=== PATIENT | female | born 1945 | race Caucasian/White ===

== ENCOUNTER 2017-08-15 13:18 | Observation (INO) | payer MEDICARE ==
[2017-08-15] MEDS: ASPIRIN 81 MG TAB PO (15:14)
[2017-08-15 15:17] LABS: ADD MAN DIFF? NO
[2017-08-15 15:19] LABS: BASOPHIL # 0.1 10^3/ul (0.0-0.1); BASOPHILS % 0.9 % (0.0-2.0); EOSINOPHILS # 0.1 10^3/ul (0.0-0.5); EOSINOPHILS % 1.2 % (0.0-7.0); HEMATOCRIT 43.6 % (37.0-47.0); HEMOGLOBIN 13.9 g/dl (12.0-16.0); LYMPHOCYTES # 2.2 10^3/ul (0.8-2.9); LYMPHOCYTES % 32.1 % (15.0-51.0); MEAN CORPUSCULAR HEMOGLOBIN 28.5 pg (29.0-33.0); MEAN CORPUSCULAR HGB CONC 31.9 g/dl (32.0-37.0); MEAN CORPUSCULAR VOLUME 89.5 fl (82.0-101.0); MEAN PLATELET VOLUME 10.4 fl (7.4-10.4); MONOCYTE # 0.5 10^3/ul (0.3-0.9); MONOCYTES % 7.1 % (0.0-11.0); NEUTROPHILS % 58.3 % (39.0-77.0); PLATELET COUNT 271 10^3/UL (140-415); RED BLOOD COUNT 4.87 10^6/ul (4.20-5.40); RED CELL DISTRIBUTION WIDTH 14.9 % (11.5-14.5)
[2017-08-15 15:19] LABS: WHITE BLOOD COUNT 6.9 10^3/ul (4.8-10.8)
[2017-08-15 15:41] LABS: ALANINE AMINOTRANSFERASE 16 IU/L (13-69); ALBUMIN 4.6 g/dl (3.3-4.9); ALBUMIN/GLOBULIN RATIO 1.21; ALKALINE PHOSPHATASE 91 IU/L (42-121); ANION GAP 17 (8-16); ASPARTATE AMINO TRANSFERASE 20 IU/L (15-46); BILIRUBIN,INDIRECT 0.2 mg/dl (0-1.1); BILIRUBIN,TOTAL 0.2 mg/dl (0.2-1.3); BLOOD UREA NITROGEN 15 mg/dl (7-20); CALCIUM 9.2 mg/dl (8.4-10.2); CARBON DIOXIDE 27 mmol/L (21-31); CHLORIDE 107 mmol/L (97-110); CREATININE 1.22 mg/dl (0.44-1.00); GLUCOSE 98 mg/dl (70-220); LIPASE 80 U/L (23-300); POTASSIUM 3.8 mmol/L (3.5-5.1); SODIUM 147 mmol/L (135-144); TOTAL PROTEIN 8.4 g/dl (6.1-8.1)
[2017-08-15 15:44] LABS: PROTIME 12.2 Sec (11.9-14.9)
[2017-08-15 15:52] LABS: B-TYPE NATRIURETIC PEPTIDE 2320 PG/ML (0-125)
[2017-08-15 15:53] LABS: TROPONIN-I < 0.012 ng/ml (0.00-0.12)
[2017-08-15] MEDS: SOD CHLORIDE 0.9% 1,000 ML IV (16:04)
[2017-08-15 19:55] LABS: TROPONIN-I 0.012 ng/ml (0.00-0.12)
[2017-08-15] MEDS: FUROSEMIDE 20 MG INJ IV (22:23)
[2017-08-15] MEDS: POTASSIUM CHLORIDE (SR) 10 MEQ TAB PO (22:24)
[2017-08-15] MEDS: CYCLOBENZAPRINE 10 MG TAB PO (23:00)
[2017-08-16] MEDS: ATORVASTATIN 40 MG TAB PO (00:08)
[2017-08-16] MEDS: RANITIDINE 150 MG TAB PO (00:08)
[2017-08-16] MEDS: GABAPENTIN 300 MG CAP PO ×3 (00:08→12:59)
[2017-08-16 01:05] LABS: OPIATES Positive (NEGATIVE)
[2017-08-16 01:14] LABS: AMPHETAMINE/METHAMPHETAMINE Negative (NEGATIVE); BARBITURATES Negative (NEGATIVE); BENZODIAZEPINES Negative (NEGATIVE); CANNABINOIDS Negative (NEGATIVE); COCAINE Negative (NEGATIVE)
[2017-08-16 07:54] LABS: ADD MAN DIFF? NO
[2017-08-16 07:57] LABS: BASOPHIL # 0.1 10^3/ul (0.0-0.1); BASOPHILS % 0.8 % (0.0-2.0); EOSINOPHILS # 0.1 10^3/ul (0.0-0.5); EOSINOPHILS % 1.5 % (0.0-7.0); HEMATOCRIT 39.1 % (37.0-47.0); HEMOGLOBIN 12.2 g/dl (12.0-16.0); LYMPHOCYTES # 1.8 10^3/ul (0.8-2.9); LYMPHOCYTES % 25.9 % (15.0-51.0); MEAN CORPUSCULAR HEMOGLOBIN 27.9 pg (29.0-33.0); MEAN CORPUSCULAR HGB CONC 31.2 g/dl (32.0-37.0); MEAN CORPUSCULAR VOLUME 89.3 fl (82.0-101.0); MEAN PLATELET VOLUME 10.5 fl (7.4-10.4); MONOCYTE # 0.7 10^3/ul (0.3-0.9); MONOCYTES % 9.7 % (0.0-11.0); NEUTROPHIL # 4.4 10^3/ul (1.6-7.5); NEUTROPHILS % 61.8 % (39.0-77.0); PLATELET COUNT 239 10^3/UL (140-415); RED BLOOD COUNT 4.38 10^6/ul (4.20-5.40)
[2017-08-16 07:57] LABS: WHITE BLOOD COUNT 7.1 10^3/ul (4.8-10.8)
[2017-08-16] MEDS: BUMETANIDE 1 MG TAB PO (08:12)
[2017-08-16] MEDS: AMIODARONE 200 MG TAB PO (08:14)
[2017-08-16] MEDS: VALSARTAN 80 MG TAB PO (08:14)
[2017-08-16] MEDS: DULOXETINE 20 MG CAP DR PO (08:14)
[2017-08-16] MEDS: ASPIRIN (EC) 325 MG TAB PO (08:15)
[2017-08-16] MEDS: CYCLOBENZAPRINE 10 MG TAB PO ×2 (08:15→12:59)
[2017-08-16] MEDS: POTASSIUM CHLORIDE (SR) 10 MEQ TAB PO (08:15)
[2017-08-16] MEDS: CLOPIDOGREL 75 MG TAB PO (08:15)
[2017-08-16 08:36] LABS: ALANINE AMINOTRANSFERASE 19 IU/L (13-69); ALBUMIN 3.4 g/dl (3.3-4.9); ALBUMIN/GLOBULIN RATIO 1.21; ALKALINE PHOSPHATASE 81 IU/L (42-121); ANION GAP 11 (8-16); ASPARTATE AMINO TRANSFERASE 14 IU/L (15-46); BILIRUBIN,INDIRECT 0.1 mg/dl (0-1.1); BILIRUBIN,TOTAL 0.1 mg/dl (0.2-1.3); BLOOD UREA NITROGEN 17 mg/dl (7-20); CALCIUM 8.7 mg/dl (8.4-10.2); CARBON DIOXIDE 28 mmol/L (21-31); CHLORIDE 109 mmol/L (97-110); CREATININE 0.98 mg/dl (0.44-1.00); GLUCOSE 105 mg/dl (70-220); POTASSIUM 4.2 mmol/L (3.5-5.1); SODIUM 144 mmol/L (135-144); TOTAL PROTEIN 6.2 g/dl (6.1-8.1)
[2017-08-16 08:42] LABS: B-TYPE NATRIURETIC PEPTIDE 2790 PG/ML (0-125)
[2017-08-16 08:44] LABS: TROPONIN-I 0.015 ng/ml (0.00-0.12)
[2017-08-16] MEDS: LORAZEPAM 1 MG TAB PO ×2 (12:17→18:01)
[2017-08-16] MEDS: BUMETANIDE 1 MG INJ IV (15:04)
[2017-08-16 15:09] LABS: D-DIMER 1036.61 ng/ml (<460)
[2017-08-16] MEDS: HYDROCODONE/APAP (5/325) TAB PO (17:35)
[2017-08-17] MEDS ORDERED: BUMETANIDE 1 MG TAB PO (06:00)
[2017-08-17] MEDS ORDERED: VALSARTAN 80 MG TAB PO (09:00)
[2017-08-17] MEDS ORDERED: ASPIRIN (EC) 81 MG TAB PO (09:00)
== END 2017-08-16 19:50 | disposition home or self-care (01) ==
LOC: E/R 13:18 → TEL 18:34
DX: R07.89 Other chest pain (principal); I50.9 Heart failure, unspecified; R60.0 Localized edema; F41.9 Anxiety disorder, unspecified; F32.9 Major depressive disorder, single episode, unspecified; I10 Essential (primary) hypertension; E78.5 Hyperlipidemia, unspecified; I25.2 Old myocardial infarction; Z86.73 Personal history of transient ischemic attack (TIA), and cerebral infarction without residual deficits; Z95.0 Presence of cardiac pacemaker; Z79.82 Long term (current) use of aspirin
CPT/HCPCS: 36415; 71045; 78582; 80053; 80307; 83690; 83880; 84443; 84484; 85025; 85378; 85610; 85730; 93005; 93306; 93970; 96361; 96374; 99285-25; G0378

== ENCOUNTER 2017-08-20 14:58 | Inpatient (IN) | payer MEDICARE ==
[2017-08-20 15:46] LABS: AADO2 Arterial 98.2 mmHg (7.0-24.0); Allen Test ACCEPTAB; Arterial Base Excess -0.5 mmol/L (-3.0-3); Arterial Blood Gas Oxygen Sat 86.3 mmHG (95.0-100.0); Arterial COHb 0.4 % (0.0-3.0); Arterial Fraction of Oxyhgb 85.8 % (93.0-99.0); Arterial HCO3 23.4 mmol/L (22.0-26.0); Arterial MetHb 0.2 % (0.0-1.5); Arterial Total Hemglobin 11.7 g/dl (12.0-18.0); Arterial pCO2 36.1 mmhg (35-45); MODE NASAL CANNULA; Site Right Radial
[2017-08-20 15:51] LABS: ADD MAN DIFF? NO
[2017-08-20 15:54] LABS: WHITE BLOOD COUNT 9.8 10^3/ul (4.8-10.8)
[2017-08-20 15:54] LABS: BASOPHILS % 0.4 % (0.0-2.0); EOSINOPHILS # 0.1 10^3/ul (0.0-0.5); EOSINOPHILS % 1.4 % (0.0-7.0); HEMATOCRIT 35.2 % (37.0-47.0); HEMOGLOBIN 11.1 g/dl (12.0-16.0); LYMPHOCYTES # 1.7 10^3/ul (0.8-2.9); LYMPHOCYTES % 17.4 % (15.0-51.0); MEAN CORPUSCULAR HEMOGLOBIN 28.5 pg (29.0-33.0); MEAN CORPUSCULAR HGB CONC 31.5 g/dl (32.0-37.0); MEAN CORPUSCULAR VOLUME 90.3 fl (82.0-101.0); MEAN PLATELET VOLUME 10.2 fl (7.4-10.4); MONOCYTE # 0.9 10^3/ul (0.3-0.9); MONOCYTES % 9.3 % (0.0-11.0); NEUTROPHIL # 6.9 10^3/ul (1.6-7.5); NEUTROPHILS % 71.2 % (39.0-77.0); PLATELET COUNT 240 10^3/UL (140-415); RED CELL DISTRIBUTION WIDTH 15.5 % (11.5-14.5)
[2017-08-20 16:15] LABS: INR 1.11; PARTIAL THROMBOPLASTIN TIME 28.5 Sec (25.0-35.0); PROTIME 14.5 Sec (11.9-14.9); PT RATIO 1.1
[2017-08-20 16:22] LABS: ALANINE AMINOTRANSFERASE 33 IU/L (13-69); ALBUMIN 3.6 g/dl (3.3-4.9); ALBUMIN/GLOBULIN RATIO 1.09; ALKALINE PHOSPHATASE 110 IU/L (42-121); ANION GAP 13 (8-16); ASPARTATE AMINO TRANSFERASE 21 IU/L (15-46); BILIRUBIN,INDIRECT 0.4 mg/dl (0-1.1); BILIRUBIN,TOTAL 0.4 mg/dl (0.2-1.3); BLOOD UREA NITROGEN 15 mg/dl (7-20); CALCIUM 8.5 mg/dl (8.4-10.2); CARBON DIOXIDE 25 mmol/L (21-31); CHLORIDE 104 mmol/L (97-110); CREATININE 1.23 mg/dl (0.44-1.00); GLUCOSE 95 mg/dl (70-220); POTASSIUM 4.4 mmol/L (3.5-5.1); SODIUM 138 mmol/L (135-144); TOTAL PROTEIN 6.9 g/dl (6.1-8.1)
[2017-08-20 16:43] LABS: URINE BLOOD (Dip) POC Trace-lysed (NEGATIVE); URINE GLUCOSE (Dip) POC Negative (NEGATIVE); URINE KETONES (Dip) POC Negative (NEGATIVE); URINE LEUKOCYTE EST (Dip) POC Negative (NEGATIVE); URINE NITRITE (Dip) POC Negative (NEGATIVE); URINE TOTAL PROTEIN POC Negative (NEGATIVE)
[2017-08-20 16:43] LABS: URINE PH (Dip) POC 5.5 (5.0-8.5)
[2017-08-20 16:46] LABS: TROPONIN-I < 0.012 ng/ml (0.00-0.12)
[2017-08-20 16:51] LABS: ETHANOL < 10.0 mg/dl
[2017-08-20 17:01] LABS: ADD UMIC NO; UR ASCORBIC ACID NEGATIVE (NEGATIVE); UR BILIRUBIN (Dip) NEGATIVE (NEGATIVE); UR BLOOD (Dip) NEGATIVE (NEGATIVE); UR CLARITY CLEAR (CLEAR); UR COLOR STRAW (YELLOW); UR GLUCOSE (Dip) NEGATIVE (NEGATIVE); UR KETONES (Dip) NEGATIVE (NEGATIVE); UR LEUKOCYTE ESTERASE (Dip) NEGATIVE Leu/ul (NEGATIVE); UR NITRITE (Dip) NEGATIVE (NEGATIVE); UR SPECIFIC GRAVITY (Dip) 1.005 (1.003-1.030); UR TOTAL PROTEIN (Dip) NEGATIVE (NEGATIVE); UR UROBILINOGEN (Dip) NEGATIVE (NEGATIVE)
[2017-08-20] MEDS: ACETAMINOPHEN 650 MG SUPP PR (17:06)
[2017-08-20 17:21] LABS: LACTIC ACID 1.5 mmol/L (0.5-2.0)
[2017-08-20] MEDS: SOD CHLORIDE 0.9% 2,020 ML IV (17:39)
[2017-08-20] MEDS: LEVOFLOXACIN 750MG/D5W (PMX) 150 ML IVPB (17:45)
[2017-08-20] MEDS: AZTREONAM 2 GM in SOD CHLORIDE 0.9% 100 ML IVPB (19:07)
[2017-08-20 19:22] LABS: LACTIC ACID 0.6 mmol/L (0.5-2.0)
[2017-08-20] MEDS: VANCOMYCIN 1 GM (PMX) 250 ML IVPB (20:08)
[2017-08-20 22:27] LABS: LACTIC ACID 0.6 mmol/L (0.5-2.0)
[2017-08-21] MEDS ORDERED: VANCOMYCIN IV PER PHARMACY XX (03:30)
[2017-08-21] MEDS ORDERED: LORAZEPAM 1 MG TAB PO (09:00)
[2017-08-21] MEDS: ASPIRIN (EC) 325 MG TAB PO (09:04)
[2017-08-21] MEDS: VALSARTAN 80 MG TAB PO (09:04)
[2017-08-21] MEDS: CLOPIDOGREL 75 MG TAB PO (09:04)
[2017-08-21] MEDS: RANITIDINE 150 MG TAB PO ×2 (09:05→21:35)
[2017-08-21] MEDS: POTASSIUM CHLORIDE (SR) 10 MEQ TAB PO (09:05)
[2017-08-21] MEDS: GABAPENTIN 300 MG CAP PO ×2 (09:05→14:12)
[2017-08-21] MEDS: LORAZEPAM 1 MG TAB PO ×2 (09:05→21:37)
[2017-08-21] MEDS: DULOXETINE 30 MG CAP DR PO (09:05)
[2017-08-21 09:26] LABS: ADD MAN DIFF? NO
[2017-08-21 09:31] LABS: BASOPHILS % 0.4 % (0.0-2.0); EOSINOPHILS # 0.1 10^3/ul (0.0-0.5); EOSINOPHILS % 1.2 % (0.0-7.0); HEMOGLOBIN 10.1 g/dl (12.0-16.0); LYMPHOCYTES # 0.9 10^3/ul (0.8-2.9); LYMPHOCYTES % 11.6 % (15.0-51.0); MEAN CORPUSCULAR HEMOGLOBIN 28.1 pg (29.0-33.0); MEAN CORPUSCULAR HGB CONC 31.6 g/dl (32.0-37.0); MEAN CORPUSCULAR VOLUME 89.1 fl (82.0-101.0); MEAN PLATELET VOLUME 10.5 fl (7.4-10.4); MONOCYTE # 0.7 10^3/ul (0.3-0.9); MONOCYTES % 9.3 % (0.0-11.0); NEUTROPHIL # 5.8 10^3/ul (1.6-7.5); NEUTROPHILS % 77.1 % (39.0-77.0); PLATELET COUNT 234 10^3/UL (140-415); RED BLOOD COUNT 3.59 10^6/ul (4.20-5.40); RED CELL DISTRIBUTION WIDTH 15.4 % (11.5-14.5)
[2017-08-21 09:31] LABS: WHITE BLOOD COUNT 7.5 10^3/ul (4.8-10.8)
[2017-08-21 10:00] LABS: CK-MB 1.48 ng/ml (0.0-2.4)
[2017-08-21 10:01] LABS: TROPONIN-I < 0.012 ng/ml (0.00-0.12)
[2017-08-21 10:03] LABS: ANION GAP 14 (8-16); BLOOD UREA NITROGEN 13 mg/dl (7-20); CALCIUM 8.6 mg/dl (8.4-10.2); CARBON DIOXIDE 23 mmol/L (21-31); CHLORIDE 109 mmol/L (97-110); GLUCOSE 98 mg/dl (70-220); POTASSIUM 4.1 mmol/L (3.5-5.1); SODIUM 142 mmol/L (135-144)
[2017-08-21 10:05] LABS: CK INDEX 1.3; CREATINE KINASE 116 IU/L (23-200)
[2017-08-21] MEDS: AZTREONAM 1 GM/NS (PMX) 50 ML IVPB ×3 (10:11→21:35)
[2017-08-21] MEDS: FUROSEMIDE 20 MG INJ IV (14:13)
[2017-08-21] MEDS ORDERED: VANCOMYCIN 1 GM (PMX) 250 ML IVPB (16:00)
[2017-08-21] MEDS: VANCOMYCIN 1.25 GM in SOD CHLORIDE 0.9% 250 ML IVPB (16:37)
[2017-08-21] MEDS ORDERED: AZTREONAM 2 GM in SOD CHLORIDE 0.9% 100 ML IVPB (20:00)
[2017-08-21] MEDS: ATORVASTATIN 40 MG TAB PO (21:35)
[2017-08-22] MEDS: AZTREONAM 1 GM/NS (PMX) 50 ML IVPB ×3 (05:43→22:00)
[2017-08-22 07:30] LABS: ADD MAN DIFF? NO
[2017-08-22 07:32] LABS: BASOPHILS % 0.4 % (0.0-2.0); EOSINOPHILS # 0.1 10^3/ul (0.0-0.5); EOSINOPHILS % 1.3 % (0.0-7.0); HEMOGLOBIN 10.6 g/dl (12.0-16.0); LYMPHOCYTES # 1.4 10^3/ul (0.8-2.9); LYMPHOCYTES % 20.3 % (15.0-51.0); MEAN CORPUSCULAR HEMOGLOBIN 28.1 pg (29.0-33.0); MEAN CORPUSCULAR HGB CONC 32.1 g/dl (32.0-37.0); MEAN CORPUSCULAR VOLUME 87.5 fl (82.0-101.0); MEAN PLATELET VOLUME 9.9 fl (7.4-10.4); MONOCYTE # 0.8 10^3/ul (0.3-0.9); MONOCYTES % 11.5 % (0.0-11.0); NEUTROPHIL # 4.4 10^3/ul (1.6-7.5); NEUTROPHILS % 66.1 % (39.0-77.0); PLATELET COUNT 269 10^3/UL (140-415); RED BLOOD COUNT 3.77 10^6/ul (4.20-5.40); RED CELL DISTRIBUTION WIDTH 15.4 % (11.5-14.5)
[2017-08-22 07:32] LABS: WHITE BLOOD COUNT 6.7 10^3/ul (4.8-10.8)
[2017-08-22 07:59] LABS: ANION GAP 10 (8-16); BLOOD UREA NITROGEN 12 mg/dl (7-20); CALCIUM 8.9 mg/dl (8.4-10.2); CARBON DIOXIDE 28 mmol/L (21-31); CHLORIDE 109 mmol/L (97-110); CREATININE 0.84 mg/dl (0.44-1.00); GLUCOSE 101 mg/dl (70-220); IRON 34 ug/dl (35-150); POTASSIUM 3.8 mmol/L (3.5-5.1); SODIUM 143 mmol/L (135-144)
[2017-08-22 08:07] LABS: B-TYPE NATRIURETIC PEPTIDE 7290 PG/ML (0-125)
[2017-08-22 08:09] LABS: % IRON SATURATION 12 % SAT (22-52); TOTAL IRON BINDING CAPACITY 293 ug/dl (241-421)
[2017-08-22 08:48] LABS: D-DIMER 3728.73 ng/ml (<460)
[2017-08-22 09:11] LABS: FOLATE 13.3 ng/ml (2.8-20.0)
[2017-08-22] MEDS: ASPIRIN (EC) 81 MG TAB PO (10:57)
[2017-08-22] MEDS: RANITIDINE 150 MG TAB PO ×2 (10:57→20:10)
[2017-08-22] MEDS: CLOPIDOGREL 75 MG TAB PO (10:57)
[2017-08-22] MEDS: THYROID 60 MG TAB PO (10:58)
[2017-08-22] MEDS: VALSARTAN 80 MG TAB PO (10:58)
[2017-08-22] MEDS: FUROSEMIDE 20 MG TAB PO (10:58)
[2017-08-22] MEDS: POTASSIUM CHLORIDE (SR) 10 MEQ TAB PO (10:58)
[2017-08-22] MEDS: IOHEXOL 300MG/ML 150 ML BTL (12:02)
[2017-08-22] MEDS: SOD CHLORIDE 0.9% 100 ML (12:02)
[2017-08-22] MEDS: FUROSEMIDE 40 MG INJ IV (14:13)
[2017-08-22] MEDS: HYDROmorphONE 2 MG TAB PO (14:55)
[2017-08-22 15:16] LABS: AMPHETAMINE/METHAMPHETAMINE Negative (NEGATIVE); BARBITURATES Negative (NEGATIVE); BENZODIAZEPINES Negative (NEGATIVE); CANNABINOIDS Negative (NEGATIVE); COCAINE Negative (NEGATIVE)
[2017-08-22 15:43] LABS: OPIATES Positive (NEGATIVE)
[2017-08-22] MEDS: VANCOMYCIN 1.25 GM in SOD CHLORIDE 0.9% 250 ML IVPB (16:11)
[2017-08-22] MEDS: LEVOFLOXACIN 750MG/D5W (PMX) 150 ML IVPB (19:22)
[2017-08-22] MEDS: LORAZEPAM 1 MG TAB PO (19:25)
[2017-08-22] MEDS: ATORVASTATIN 40 MG TAB PO (20:10)
[2017-08-22] MEDS: FERROUS SULFATE (SR) 142 MG TAB PO (21:03)
[2017-08-23] MEDS: AZTREONAM 1 GM/NS (PMX) 50 ML IVPB ×3 (06:04→21:22)
[2017-08-23] MEDS: FUROSEMIDE 20 MG INJ IV ×2 (06:05→17:55)
[2017-08-23 08:00] LABS: ADD MAN DIFF? NO
[2017-08-23 08:09] LABS: BASOPHILS % 0.5 % (0.0-2.0); EOSINOPHILS # 0.1 10^3/ul (0.0-0.5); EOSINOPHILS % 1.2 % (0.0-7.0); HEMATOCRIT 37.9 % (37.0-47.0); HEMOGLOBIN 12.2 g/dl (12.0-16.0); LYMPHOCYTES # 1.5 10^3/ul (0.8-2.9); LYMPHOCYTES % 20.6 % (15.0-51.0); MEAN CORPUSCULAR HGB CONC 32.2 g/dl (32.0-37.0); MEAN CORPUSCULAR VOLUME 87.1 fl (82.0-101.0); MEAN PLATELET VOLUME 9.4 fl (7.4-10.4); MONOCYTE # 0.8 10^3/ul (0.3-0.9); MONOCYTES % 11.4 % (0.0-11.0); NEUTROPHIL # 4.8 10^3/ul (1.6-7.5); PLATELET COUNT 341 10^3/UL (140-415); RED BLOOD COUNT 4.35 10^6/ul (4.20-5.40); RED CELL DISTRIBUTION WIDTH 15.1 % (11.5-14.5)
[2017-08-23 08:09] LABS: WHITE BLOOD COUNT 7.3 10^3/ul (4.8-10.8)
[2017-08-23 08:31] LABS: B-TYPE NATRIURETIC PEPTIDE 6980 PG/ML (0-125)
[2017-08-23 08:33] LABS: ANION GAP 13 (8-16); BLOOD UREA NITROGEN 12 mg/dl (7-20); CALCIUM 9.1 mg/dl (8.4-10.2); CARBON DIOXIDE 30 mmol/L (21-31); CHLORIDE 105 mmol/L (97-110); CREATININE 0.96 mg/dl (0.44-1.00); GLUCOSE 109 mg/dl (70-220); POTASSIUM 3.9 mmol/L (3.5-5.1); SODIUM 144 mmol/L (135-144)
[2017-08-23] MEDS: FERROUS SULFATE (SR) 142 MG TAB PO ×2 (08:43→21:22)
[2017-08-23] MEDS: CLOPIDOGREL 75 MG TAB PO (08:44)
[2017-08-23] MEDS: ASPIRIN (EC) 81 MG TAB PO (08:44)
[2017-08-23] MEDS: LORAZEPAM 1 MG TAB PO ×2 (08:44→21:24)
[2017-08-23] MEDS: THYROID 60 MG TAB PO (08:44)
[2017-08-23] MEDS: VALSARTAN 80 MG TAB PO (08:44)
[2017-08-23] MEDS: RANITIDINE 150 MG TAB PO ×2 (08:45→21:23)
[2017-08-23] MEDS: POTASSIUM CHLORIDE (SR) 10 MEQ TAB PO (08:46)
[2017-08-23] MEDS: HYDROmorphONE 2 MG TAB PO (15:52)
[2017-08-23] MEDS: VANCOMYCIN 1.25 GM in SOD CHLORIDE 0.9% 250 ML IVPB (15:52)
[2017-08-23] MEDS: LEVALBUTEROL (NEB) 0.63 MG/3 ML AMP HHN ×2 (17:43→23:44)
[2017-08-23] MEDS: METHYLPREDNISOLONE 125 MG INJ IV (17:54)
[2017-08-23] MEDS: ESCITALOPRAM 10 MG TAB PO (17:54)
[2017-08-23] MEDS: TIOTROPIUM 18 MCG CAPSULE INHA DEV INH (18:31)
[2017-08-23] MEDS: ATORVASTATIN 40 MG TAB PO (21:24)
[2017-08-23] MEDS: QUETIAPINE 25 MG TAB PO (21:24)
[2017-08-24] MEDS: AZTREONAM 1 GM/NS (PMX) 50 ML IVPB ×3 (06:46→22:45)
[2017-08-24] MEDS: FUROSEMIDE 20 MG INJ IV ×2 (06:46→17:01)
[2017-08-24 07:07] LABS: ADD MAN DIFF? NO
[2017-08-24 07:16] LABS: WHITE BLOOD COUNT 7.8 10^3/ul (4.8-10.8)
[2017-08-24 07:16] LABS: BASOPHILS % 0.3 % (0.0-2.0); HEMATOCRIT 35.4 % (37.0-47.0); HEMOGLOBIN 11.2 g/dl (12.0-16.0); LYMPHOCYTES # 1.2 10^3/ul (0.8-2.9); LYMPHOCYTES % 15.1 % (15.0-51.0); MEAN CORPUSCULAR HEMOGLOBIN 27.8 pg (29.0-33.0); MEAN CORPUSCULAR HGB CONC 31.6 g/dl (32.0-37.0); MEAN CORPUSCULAR VOLUME 87.8 fl (82.0-101.0); MEAN PLATELET VOLUME 9.3 fl (7.4-10.4); MONOCYTE # 0.9 10^3/ul (0.3-0.9); MONOCYTES % 10.8 % (0.0-11.0); NEUTROPHIL # 5.8 10^3/ul (1.6-7.5); NEUTROPHILS % 73.3 % (39.0-77.0); PLATELET COUNT 351 10^3/UL (140-415); RED BLOOD COUNT 4.03 10^6/ul (4.20-5.40); RED CELL DISTRIBUTION WIDTH 15.2 % (11.5-14.5)
[2017-08-24 07:34] LABS: MAGNESIUM 2.1 mg/dl (1.7-2.5)
[2017-08-24 07:43] LABS: ANION GAP 12 (8-16); BLOOD UREA NITROGEN 18 mg/dl (7-20); CALCIUM 9.2 mg/dl (8.4-10.2); CARBON DIOXIDE 27 mmol/L (21-31); CHLORIDE 108 mmol/L (97-110); CREATININE 0.89 mg/dl (0.44-1.00); GLUCOSE 138 mg/dl (70-220); POTASSIUM 3.5 mmol/L (3.5-5.1); SODIUM 143 mmol/L (135-144)
[2017-08-24] MEDS: LEVALBUTEROL (NEB) 0.63 MG/3 ML AMP HHN ×3 (08:35→23:22)
[2017-08-24] MEDS: TIOTROPIUM 18 MCG CAPSULE INHA DEV INH (08:57)
[2017-08-24] MEDS: RANITIDINE 150 MG TAB PO ×2 (08:57→22:45)
[2017-08-24] MEDS: QUETIAPINE 25 MG TAB PO ×2 (08:57→22:46)
[2017-08-24] MEDS: POTASSIUM CHLORIDE (SR) 10 MEQ TAB PO (08:57)
[2017-08-24] MEDS: CLOPIDOGREL 75 MG TAB PO (08:57)
[2017-08-24] MEDS: ESCITALOPRAM 10 MG TAB PO (08:58)
[2017-08-24] MEDS: predniSONE 20 MG TAB PO (08:58)
[2017-08-24] MEDS: ASPIRIN (EC) 81 MG TAB PO (08:58)
[2017-08-24] MEDS: VALSARTAN 80 MG TAB PO ×2 (08:59→22:46)
[2017-08-24] MEDS: THYROID 60 MG TAB PO (09:07)
[2017-08-24] MEDS: FERROUS SULFATE (SR) 142 MG TAB PO ×2 (09:10→22:46)
[2017-08-24 16:05] LABS: VANCOMYCIN,TROUGH 8.7 ug/ml (10.0-20.0)
[2017-08-24] MEDS: VANCOMYCIN 1.25 GM in SOD CHLORIDE 0.9% 250 ML IVPB (17:00)
[2017-08-24] MEDS: SPIRONOLACTONE 25 MG TAB PO (17:01)
[2017-08-24] MEDS: LEVOFLOXACIN 750MG/D5W (PMX) 150 ML IVPB (18:00)
[2017-08-24] MEDS: HYDROmorphONE 2 MG TAB PO (18:14)
[2017-08-24] MEDS: ATORVASTATIN 40 MG TAB PO (22:45)
[2017-08-25] MEDS: VANCOMYCIN 1 GM 250 ML IVPB (05:11)
[2017-08-25] MEDS: AZTREONAM 1 GM/NS (PMX) 50 ML IVPB ×3 (06:23→21:40)
[2017-08-25] MEDS: FUROSEMIDE 20 MG INJ IV (06:23)
[2017-08-25 07:03] LABS: ADD MAN DIFF? NO
[2017-08-25 07:04] LABS: WHITE BLOOD COUNT 10.1 10^3/ul (4.8-10.8)
[2017-08-25 07:04] LABS: BASOPHIL # 0.1 10^3/ul (0.0-0.1); BASOPHILS % 0.5 % (0.0-2.0); EOSINOPHILS % 0.1 % (0.0-7.0); HEMATOCRIT 37.3 % (37.0-47.0); HEMOGLOBIN 11.8 g/dl (12.0-16.0); LYMPHOCYTES # 2.7 10^3/ul (0.8-2.9); LYMPHOCYTES % 26.5 % (15.0-51.0); MEAN CORPUSCULAR HEMOGLOBIN 27.7 pg (29.0-33.0); MEAN CORPUSCULAR HGB CONC 31.6 g/dl (32.0-37.0); MEAN CORPUSCULAR VOLUME 87.6 fl (82.0-101.0); MEAN PLATELET VOLUME 9.2 fl (7.4-10.4); MONOCYTE # 1.1 10^3/ul (0.3-0.9); MONOCYTES % 10.6 % (0.0-11.0); NEUTROPHIL # 6.3 10^3/ul (1.6-7.5); PLATELET COUNT 431 10^3/UL (140-415); RED BLOOD COUNT 4.26 10^6/ul (4.20-5.40); RED CELL DISTRIBUTION WIDTH 15.6 % (11.5-14.5)
[2017-08-25 07:26] LABS: MAGNESIUM 2.2 mg/dl (1.7-2.5)
[2017-08-25 07:26] LABS: ALANINE AMINOTRANSFERASE 29 IU/L (13-69); ALBUMIN 3.6 g/dl (3.3-4.9); ALBUMIN/GLOBULIN RATIO 1.05; ALKALINE PHOSPHATASE 116 IU/L (42-121); ANION GAP 17 (8-16); ASPARTATE AMINO TRANSFERASE 19 IU/L (15-46); BILIRUBIN,INDIRECT 0.2 mg/dl (0-1.1); BILIRUBIN,TOTAL 0.2 mg/dl (0.2-1.3); BLOOD UREA NITROGEN 18 mg/dl (7-20); CALCIUM 9.1 mg/dl (8.4-10.2); CARBON DIOXIDE 28 mmol/L (21-31); CHLORIDE 107 mmol/L (97-110); CREATININE 0.91 mg/dl (0.44-1.00); GLUCOSE 98 mg/dl (70-220); POTASSIUM 4.4 mmol/L (3.5-5.1); SODIUM 148 mmol/L (135-144)
[2017-08-25 07:31] LABS: B-TYPE NATRIURETIC PEPTIDE 6810 PG/ML (0-125)
[2017-08-25] MEDS: LEVALBUTEROL (NEB) 0.63 MG/3 ML AMP HHN ×3 (07:46→23:33)
[2017-08-25] MEDS: SPIRONOLACTONE 25 MG TAB PO (08:10)
[2017-08-25] MEDS: predniSONE 20 MG TAB PO (08:10)
[2017-08-25] MEDS: ASPIRIN (EC) 81 MG TAB PO (08:10)
[2017-08-25] MEDS: THYROID 60 MG TAB PO (08:10)
[2017-08-25] MEDS: QUETIAPINE 25 MG TAB PO ×2 (08:10→21:42)
[2017-08-25] MEDS: POTASSIUM CHLORIDE (SR) 10 MEQ TAB PO (08:10)
[2017-08-25] MEDS: FERROUS SULFATE (SR) 142 MG TAB PO ×2 (08:10→21:42)
[2017-08-25] MEDS: CLOPIDOGREL 75 MG TAB PO (08:10)
[2017-08-25] MEDS: RANITIDINE 150 MG TAB PO ×2 (08:11→21:43)
[2017-08-25] MEDS: TIOTROPIUM 18 MCG CAPSULE INHA DEV INH (08:11)
[2017-08-25] MEDS: VALSARTAN 80 MG TAB PO ×2 (08:11→21:41)
[2017-08-25] MEDS: ESCITALOPRAM 10 MG TAB PO (08:11)
[2017-08-25] MEDS: LORAZEPAM 1 MG TAB PO (15:29)
[2017-08-25] MEDS: HALOPERIDOL 2 MG TAB PO (18:36)
[2017-08-25] MEDS: HALOPERIDOL 5 MG TAB PO (18:37)
[2017-08-25] MEDS: ATORVASTATIN 40 MG TAB PO (21:40)
[2017-08-26] MEDS: AZTREONAM 1 GM/NS (PMX) 50 ML IVPB ×2 (06:56→13:58)
[2017-08-26 07:38] LABS: ADD MAN DIFF? NO
[2017-08-26 07:44] LABS: WHITE BLOOD COUNT 9.8 10^3/ul (4.8-10.8)
[2017-08-26 07:44] LABS: BASOPHILS % 0.4 % (0.0-2.0); EOSINOPHILS % 0.2 % (0.0-7.0); HEMATOCRIT 35.4 % (37.0-47.0); HEMOGLOBIN 11.2 g/dl (12.0-16.0); LYMPHOCYTES # 2.8 10^3/ul (0.8-2.9); LYMPHOCYTES % 28.4 % (15.0-51.0); MEAN CORPUSCULAR HEMOGLOBIN 28.2 pg (29.0-33.0); MEAN CORPUSCULAR HGB CONC 31.6 g/dl (32.0-37.0); MEAN CORPUSCULAR VOLUME 89.2 fl (82.0-101.0); MEAN PLATELET VOLUME 9.2 fl (7.4-10.4); NEUTROPHIL # 5.9 10^3/ul (1.6-7.5); NEUTROPHILS % 60.5 % (39.0-77.0); PLATELET COUNT 415 10^3/UL (140-415); RED BLOOD COUNT 3.97 10^6/ul (4.20-5.40); RED CELL DISTRIBUTION WIDTH 15.6 % (11.5-14.5)
[2017-08-26] MEDS: LEVALBUTEROL (NEB) 0.63 MG/3 ML AMP HHN ×2 (08:02→15:34)
[2017-08-26 08:18] LABS: ANION GAP 11 (8-16); BLOOD UREA NITROGEN 20 mg/dl (7-20); CALCIUM 9.3 mg/dl (8.4-10.2); CARBON DIOXIDE 29 mmol/L (21-31); CHLORIDE 110 mmol/L (97-110); CREATININE 0.93 mg/dl (0.44-1.00); GLUCOSE 106 mg/dl (70-220); POTASSIUM 4.3 mmol/L (3.5-5.1); SODIUM 146 mmol/L (135-144)
[2017-08-26] MEDS: TIOTROPIUM 18 MCG CAPSULE INHA DEV INH (08:44)
[2017-08-26] MEDS: FERROUS SULFATE (SR) 142 MG TAB PO (08:45)
[2017-08-26] MEDS: QUETIAPINE 25 MG TAB PO (08:45)
[2017-08-26] MEDS: predniSONE 20 MG TAB PO (08:45)
[2017-08-26] MEDS: CLOPIDOGREL 75 MG TAB PO (08:45)
[2017-08-26] MEDS: RANITIDINE 150 MG TAB PO (08:45)
[2017-08-26] MEDS: VALSARTAN 80 MG TAB PO (08:48)
[2017-08-26] MEDS: SPIRONOLACTONE 25 MG TAB PO (08:48)
[2017-08-26] MEDS: POTASSIUM CHLORIDE (SR) 10 MEQ TAB PO (08:48)
[2017-08-26] MEDS: ESCITALOPRAM 10 MG TAB PO (08:48)
[2017-08-26] MEDS: FUROSEMIDE 40 MG TAB PO (08:49)
[2017-08-26] MEDS: ASPIRIN (EC) 81 MG TAB PO (08:54)
[2017-08-26] MEDS: THYROID 60 MG TAB PO (08:56)
[2017-08-26] MEDS: LEVOFLOXACIN 750MG/D5W (PMX) 150 ML IVPB (17:19)
[2017-08-26] MEDS: AZITHROMYCIN 250 MG TAB PO (17:24)
== END 2017-08-26 18:38 | disposition home health service (06) | DRG 291 ==
LOC: TEL 17:53 → E/R 14:58 → TEL 08-21 14:10
PROVIDERS: Internal Medicine
DX: I11.0 Hypertensive heart disease with heart failure (principal); J18.9 Pneumonia, unspecified organism; G93.49 Other encephalopathy; J96.01 Acute respiratory failure with hypoxia; I31.3 Pericardial effusion (noninflammatory); I50.23 Acute on chronic systolic (congestive) heart failure; Z72.0 Tobacco use; Z95.0 Presence of cardiac pacemaker; Z95.5 Presence of coronary angioplasty implant and graft; Z86.73 Personal history of transient ischemic attack (TIA), and cerebral infarction without residual deficits; M46.02 Spinal enthesopathy, cervical region; I25.2 Old myocardial infarction; G89.29 Other chronic pain; D64.9 Anemia, unspecified; F41.8 Other specified anxiety disorders; E03.9 Hypothyroidism, unspecified
CPT/HCPCS: 36415; 36600; 70450; 71045; 71270; 72125; 80048; 80053; 80202; 80307; 81003; 82550; 82553; 82607; 82746; 82803; 82962; 83540; 83605; 83735; 83880; 83921; 84443; 84484; 85025; 85378; 85610; 85651; 85730; 87040; 87086; 93005; 93308; 94640; 94664; 96374; 96375; 99291-25

== ENCOUNTER 2017-12-06 18:13 | Observation (INO) | payer MEDICARE ==
[2017-12-06 21:09] LABS: URINE BLOOD (Dip) POC Negative (NEGATIVE); URINE GLUCOSE (Dip) POC Negative (NEGATIVE); URINE KETONES (Dip) POC Negative (NEGATIVE); URINE LEUKOCYTE EST (Dip) POC 1+ (NEGATIVE); URINE NITRITE (Dip) POC Negative (NEGATIVE); URINE TOTAL PROTEIN POC Negative (NEGATIVE)
[2017-12-06] MEDS ORDERED: NITROGLYCERIN (SL) 0.4 MG TAB SL (21:30)
[2017-12-06 21:33] LABS: ADD MAN DIFF? NO
[2017-12-06 21:40] LABS: BASOPHIL # 0.1 10^3/ul (0.0-0.1); BASOPHILS % 0.7 % (0.0-2.0); EOSINOPHILS # 0.2 10^3/ul (0.0-0.5); EOSINOPHILS % 2.7 % (0.0-7.0); HEMATOCRIT 44.8 % (37.0-47.0); HEMOGLOBIN 14.6 g/dl (12.0-16.0); LYMPHOCYTES # 3.2 10^3/ul (0.8-2.9); LYMPHOCYTES % 39.1 % (15.0-51.0); MEAN CORPUSCULAR HEMOGLOBIN 29.4 pg (29.0-33.0); MEAN CORPUSCULAR HGB CONC 32.6 g/dl (32.0-37.0); MEAN CORPUSCULAR VOLUME 90.1 fl (82.0-101.0); MONOCYTE # 0.6 10^3/ul (0.3-0.9); MONOCYTES % 7.4 % (0.0-11.0); NEUTROPHILS % 49.7 % (39.0-77.0); PLATELET COUNT 252 10^3/UL (140-415); RED BLOOD COUNT 4.97 10^6/ul (4.20-5.40); RED CELL DISTRIBUTION WIDTH 15.2 % (11.5-14.5)
[2017-12-06 21:40] LABS: WHITE BLOOD COUNT 8.1 10^3/ul (4.8-10.8)
[2017-12-06] MEDS: NITROGLYCERIN 2% 1 GM OINT PKT TD (21:46)
[2017-12-06] MEDS: ASPIRIN 81 MG TAB PO (21:46)
[2017-12-06 22:14] LABS: ANION GAP 17 (8-16); BLOOD UREA NITROGEN 25 mg/dl (7-20); CALCIUM 9.7 mg/dl (8.4-10.2); CARBON DIOXIDE 25 mmol/L (21-31); CHLORIDE 106 mmol/L (97-110); CREATININE 1.08 mg/dl (0.44-1.00); GLUCOSE 105 mg/dl (70-220); POTASSIUM 3.9 mmol/L (3.5-5.1); SODIUM 144 mmol/L (135-144)
[2017-12-06 22:25] LABS: TROPONIN-I < 0.012 ng/ml (0.000-0.120)
[2017-12-06] MEDS ORDERED: ACETAMINOPHEN 325 MG TAB PO (23:00)
[2017-12-06] MEDS ORDERED: ONDANSETRON 4 MG INJ IV (23:00)
[2017-12-06] MEDS: D5W-0.45 NACL + KCL 20 MEQ 1,000 ML IV (23:51)
[2017-12-06 23:55] LABS: AMPHETAMINE/METHAMPHETAMINE Negative (NEGATIVE); BARBITURATES Negative (NEGATIVE); BENZODIAZEPINES Negative (NEGATIVE); CANNABINOIDS Negative (NEGATIVE)
[2017-12-06 23:58] LABS: OPIATES Positive (NEGATIVE)
[2017-12-07] MEDS ORDERED: LORAZEPAM 1 MG TAB PO
[2017-12-07 00:02] LABS: COCAINE Negative (NEGATIVE)
[2017-12-07] MEDS: HYDROCODONE/APAP (5/325) TAB PO ×2 (03:32→16:45)
[2017-12-07 05:08] LABS: ADD MAN DIFF? NO
[2017-12-07 05:12] LABS: BASOPHIL # 0.1 10^3/ul (0.0-0.1); BASOPHILS % 0.8 % (0.0-2.0); EOSINOPHILS # 0.3 10^3/ul (0.0-0.5); EOSINOPHILS % 3.6 % (0.0-7.0); HEMATOCRIT 41.8 % (37.0-47.0); HEMOGLOBIN 13.3 g/dl (12.0-16.0); LYMPHOCYTES # 2.7 10^3/ul (0.8-2.9); MEAN CORPUSCULAR HEMOGLOBIN 28.8 pg (29.0-33.0); MEAN CORPUSCULAR HGB CONC 31.8 g/dl (32.0-37.0); MEAN CORPUSCULAR VOLUME 90.5 fl (82.0-101.0); MEAN PLATELET VOLUME 10.3 fl (7.4-10.4); MONOCYTE # 0.6 10^3/ul (0.3-0.9); MONOCYTES % 7.2 % (0.0-11.0); NEUTROPHIL # 4.8 10^3/ul (1.6-7.5); NEUTROPHILS % 56.2 % (39.0-77.0); PLATELET COUNT 237 10^3/UL (140-415); RED BLOOD COUNT 4.62 10^6/ul (4.20-5.40); RED CELL DISTRIBUTION WIDTH 15.3 % (11.5-14.5)
[2017-12-07 05:12] LABS: WHITE BLOOD COUNT 8.6 10^3/ul (4.8-10.8)
[2017-12-07 05:45] LABS: CREATINE KINASE 69 IU/L (23-200)
[2017-12-07 05:47] LABS: B-TYPE NATRIURETIC PEPTIDE 661 PG/ML (0-125)
[2017-12-07 05:51] LABS: CK-MB 1.41 ng/ml (0.0-2.4); TROPONIN-I < 0.012 ng/ml (0.000-0.120)
[2017-12-07 05:55] LABS: ALANINE AMINOTRANSFERASE 21 IU/L (13-69); ALBUMIN 3.6 g/dl (3.3-4.9); ALKALINE PHOSPHATASE 71 IU/L (42-121); ANION GAP 15 (8-16); ASPARTATE AMINO TRANSFERASE 19 IU/L (15-46); BILIRUBIN,INDIRECT 0.1 mg/dl (0-1.1); BILIRUBIN,TOTAL 0.1 mg/dl (0.2-1.3); BLOOD UREA NITROGEN 22 mg/dl (7-20); CALCIUM 9.1 mg/dl (8.4-10.2); CARBON DIOXIDE 27 mmol/L (21-31); CHLORIDE 105 mmol/L (97-110); CREATININE 1.15 mg/dl (0.44-1.00); GLUCOSE 129 mg/dl (70-220); POTASSIUM 3.9 mmol/L (3.5-5.1); SODIUM 143 mmol/L (135-144); TOTAL PROTEIN 6.6 g/dl (6.1-8.1)
[2017-12-07] MEDS: FUROSEMIDE 40 MG TAB PO (06:36)
[2017-12-07] MEDS: FLUTICASONE/VILANTEROL 200-25 INH DEVICE INH (08:52)
[2017-12-07] MEDS: GABAPENTIN 300 MG CAP PO ×3 (08:53→20:40)
[2017-12-07] MEDS: CLOPIDOGREL 75 MG TAB PO (08:53)
[2017-12-07] MEDS: RANITIDINE 150 MG TAB PO ×2 (08:53→20:40)
[2017-12-07] MEDS: SPIRONOLACTONE 25 MG TAB PO (08:53)
[2017-12-07] MEDS: AMIODARONE 200 MG TAB PO (08:53)
[2017-12-07] MEDS: LOSARTAN 25 MG TAB PO (08:54)
[2017-12-07] MEDS: THYROID 60 MG TAB PO (10:31)
[2017-12-07 13:16] LABS: CREATINE KINASE 57 IU/L (23-200)
[2017-12-07] MEDS: D5W-0.45 NACL + KCL 20 MEQ 1,000 ML IV (13:18)
[2017-12-07 13:29] LABS: CK-MB 1.12 ng/ml (0.0-2.4); TROPONIN-I < 0.012 ng/ml (0.000-0.120)
[2017-12-08] MEDS: FUROSEMIDE 40 MG TAB PO (05:48)
[2017-12-08 07:01] LABS: ADD MAN DIFF? NO
[2017-12-08 07:05] LABS: BASOPHILS % 0.7 % (0.0-2.0); EOSINOPHILS # 0.2 10^3/ul (0.0-0.5); EOSINOPHILS % 2.8 % (0.0-7.0); HEMATOCRIT 43.7 % (37.0-47.0); LYMPHOCYTES # 1.3 10^3/ul (0.8-2.9); LYMPHOCYTES % 22.1 % (15.0-51.0); MEAN CORPUSCULAR VOLUME 90.7 fl (82.0-101.0); MONOCYTE # 0.5 10^3/ul (0.3-0.9); NEUTROPHIL # 3.8 10^3/ul (1.6-7.5); NEUTROPHILS % 66.1 % (39.0-77.0); PLATELET COUNT 213 10^3/UL (140-415); RED BLOOD COUNT 4.82 10^6/ul (4.20-5.40); RED CELL DISTRIBUTION WIDTH 14.9 % (11.5-14.5)
[2017-12-08 07:05] LABS: WHITE BLOOD COUNT 5.8 10^3/ul (4.8-10.8)
[2017-12-08 07:46] LABS: B-TYPE NATRIURETIC PEPTIDE 1630 PG/ML (0-125)
[2017-12-08 07:52] LABS: ANION GAP 13 (8-16); BLOOD UREA NITROGEN 14 mg/dl (7-20); CALCIUM 9.3 mg/dl (8.4-10.2); CARBON DIOXIDE 28 mmol/L (21-31); CHLORIDE 108 mmol/L (97-110); CREATININE 0.96 mg/dl (0.44-1.00); GLUCOSE 115 mg/dl (70-220); POTASSIUM 4.4 mmol/L (3.5-5.1); SODIUM 145 mmol/L (135-144)
[2017-12-08] MEDS: D5W-0.45 NACL + KCL 20 MEQ 1,000 ML IV (09:40)
[2017-12-08] MEDS: GABAPENTIN 300 MG CAP PO ×2 (09:41→13:02)
[2017-12-08] MEDS: ASPIRIN 81 MG TAB PO (09:41)
[2017-12-08] MEDS: THYROID 60 MG TAB PO (09:41)
[2017-12-08] MEDS: CLOPIDOGREL 75 MG TAB PO (09:41)
[2017-12-08] MEDS: RANITIDINE 150 MG TAB PO (09:41)
[2017-12-08] MEDS: SPIRONOLACTONE 25 MG TAB PO (09:42)
[2017-12-08] MEDS: FLUTICASONE/VILANTEROL 200-25 INH DEVICE INH (09:42)
[2017-12-08] MEDS: LOSARTAN 25 MG TAB PO (09:42)
[2017-12-08] MEDS: AMIODARONE 200 MG TAB PO (09:42)
== END 2017-12-08 18:15 | disposition home or self-care (01) ==
LOC: TEL 23:01 → E/R 18:13
DX: R07.89 Other chest pain (principal); I50.9 Heart failure, unspecified; I10 Essential (primary) hypertension; J44.9 Chronic obstructive pulmonary disease, unspecified; F41.9 Anxiety disorder, unspecified; F32.9 Major depressive disorder, single episode, unspecified; M51.36 Other intervertebral disc degeneration, lumbar region; E03.9 Hypothyroidism, unspecified; I25.10 Atherosclerotic heart disease of native coronary artery without angina pectoris; I25.2 Old myocardial infarction; I25.5 Ischemic cardiomyopathy; F17.200 Nicotine dependence, unspecified, uncomplicated; I31.3 Pericardial effusion (noninflammatory); E78.00 Pure hypercholesterolemia, unspecified; R41.3 Other amnesia; Z98.61 Coronary angioplasty status
CPT/HCPCS: 36415; 71045; 80048; 80053; 80307; 81003; 82550; 82553; 83880; 84484; 85025; 87086; 93005; 93306; 99285-25; G0378

== ENCOUNTER 2018-09-08 12:16 | Emergency (ER) | payer OTHER, MEDICARE ==
[2018-09-08 13:29] LABS: ADD MAN DIFF? NO
[2018-09-08] MEDS: IPRATROPIUM (NEB) 0.5 MG/2.5 ML AMP INH (13:29)
[2018-09-08] MEDS: LEVALBUTEROL (NEB) 1.25 MG/0.5 ML AMP HHN (13:30)
[2018-09-08 13:43] LABS: WHITE BLOOD COUNT 6.9 10^3/ul (4.8-10.8)
[2018-09-08 13:43] LABS: BASOPHILS % 0.4 % (0.0-2.0); EOSINOPHILS % 0.1 % (0.0-7.0); HEMATOCRIT 43.5 % (37.0-47.0); LYMPHOCYTES # 1.3 10^3/ul (0.8-2.9); LYMPHOCYTES % 18.2 % (15.0-51.0); MEAN CORPUSCULAR HEMOGLOBIN 30.3 pg (29.0-33.0); MEAN CORPUSCULAR HGB CONC 32.2 g/dl (32.0-37.0); MEAN CORPUSCULAR VOLUME 94.2 fl (82.0-101.0); MEAN PLATELET VOLUME 10.5 fl (7.4-10.4); MONOCYTES % 14.2 % (0.0-11.0); NEUTROPHIL # 4.6 10^3/ul (1.6-7.5); NEUTROPHILS % 66.8 % (39.0-77.0); PLATELET COUNT 203 10^3/UL (140-415); RED BLOOD COUNT 4.62 10^6/ul (4.20-5.40); RED CELL DISTRIBUTION WIDTH 13.8 % (11.5-14.5)
[2018-09-08 14:01] LABS: ANION GAP 10 (5-13); BLOOD UREA NITROGEN 18 mg/dl (7-20); CALCIUM 9.2 mg/dl (8.4-10.2); CARBON DIOXIDE 24 mmol/L (21-31); CHLORIDE 106 mmol/L (97-110); CREATININE 1.11 mg/dl (0.44-1.00); GLUCOSE 99 mg/dl (70-220); POTASSIUM 4.2 mmol/L (3.5-5.1); SODIUM 140 mmol/L (135-144)
[2018-09-08 14:04] LABS: INR 0.93; PARTIAL THROMBOPLASTIN TIME 25.8 Sec (23.0-35.0); PROTIME 12.6 Sec (11.9-14.9)
[2018-09-08 14:12] LABS: B-TYPE NATRIURETIC PEPTIDE 1070 PG/ML (0-125); TROPONIN-I < 0.012 ng/ml (0.000-0.120)
[2018-09-08] MEDS: FUROSEMIDE 40 MG INJ IV (15:42)
[2018-09-08] MEDS: ASPIRIN 81 MG TAB PO (15:42)
== END 2018-09-08 17:31 | disposition home or self-care (01) ==
LOC: E/R 12:16
DX: R06.02 Shortness of breath (principal); I50.9 Heart failure, unspecified; I25.2 Old myocardial infarction; R09.89 Other specified symptoms and signs involving the circulatory and respiratory systems; R07.89 Other chest pain; Z87.891 Personal history of nicotine dependence; Z79.01 Long term (current) use of anticoagulants
CPT/HCPCS: 36415; 71045; 80048; 83880; 84484; 85025; 85610; 85730; 93005; 94664; 96374; 99285-25